=== PATIENT | female | born 1995 | race Caucasian/White ===

== ENCOUNTER 2023-06-08 17:05 | Emergency (ER) | payer OTHER ==
[~2023-06-08] VITALS: Ht 154.9 cm; Wt 59.1 kg
[2023-06-08] MEDS ORDERED: IBUPROFEN 600 MG TABLET PO ONE (20:45)
[2023-06-08] MEDS ORDERED: CYCL-448 PO (20:59)
[2023-06-08 21:05] VITALS: BP 129/70; PULSE 75; RESP 16; TEMP 97.3
== END 2023-06-08 21:24 | disposition home or self-care (01) ==
LOC: EMS 17:09
DX: M54.6 Pain in thoracic spine (principal); F12.90 Cannabis use, unspecified, uncomplicated
CPT/HCPCS: 71045; 99283